=== PATIENT | female | born 1965 | race Caucasian/White ===

== ENCOUNTER 2019-06-27 13:53 | Emergency (ER) | payer SELFPAY ==
--- NOTE | 2019-06-27 15:45 | RAD REPORT ---
EXAM DESCRIPTION: RAD - Chest Pa And Lat (2 Views) - 06/27/2019 3:37 pm CLINICAL HISTORY: COUGH COMPARISON: No comparisons TECHNIQUE: Frontal and lateral views of the chest were obtained. FINDINGS: The lungs are clear. Heart size is normal and central vasculature is within normal limit s. No pleural effusion or pneumothorax seen. No acute bony finding noted. No aortic abnormality. IMPRESSION: No acute cardiopulmonary process.
[2019-06-27] MEDS ORDERED: predniSONE 20 MG TAB ONE (16:38)
[2019-06-27] MEDS ORDERED: CEFTRIAXONE 1000 MG/VIAL ONE (16:38)
[2019-06-27] MEDS ORDERED: AZITHROMYCIN 250 MG TAB ONE (16:38)
[2019-06-27] MEDS ORDERED: ALBUTEROL 2.5 MG/3 ML NEB SOL ONE (16:38)
[2019-06-27] MEDS ORDERED: IPRATROPIUM BROM 0.5MG/2.5ML ONE (16:38)
[2019-06-27] MEDS ORDERED: WATER FOR INJ,STERILE 10 ML ONE (16:39)
--- NOTE | 2019-06-27 17:05 | ER ---
Nurse's Notes [facility] Name: Brenda Velazquez Age: 54 yrs Sex: Female : 1965 Arrival Date: 06/27/2019 Time: 13:58 Bed 27 Private MD: Diagnosis: Cough;Acute upper respiratory infection, unspecified;Bronchitis, not specified as acute or chronic Presentation: 06/27 14:35 Presenting complaint: Patient states: Coughing and congestion x 1 month, intermittent jl7 fever x 1 week, went to urgent care and they sent her to ER due to "Crackles in posterior lungs.". Transition of care: patient was not received from another setting of care. Onset of symptoms was May 18, 2019. Risk Assessment: Do you want to hurt yourself or someone else? Patient reports no desire to harm self or others. Initial Sepsis Screen: Does the patient meet any 2 criteria? No. Patient's initial sepsis screen is negative. Does the patient have a suspected source of infection? No. Patient's initial sepsis screen is negative. Care prior to arrival: None. 14:35 Method Of Arrival: Ambulatory [facility] 14:35 Acuity: GAB 3 jl7 Triage Assessment: 14:37 General: Appears in no apparent distress. uncomfortable, Behavior is calm, cooperative, jl7 appropriate for age. Pain: Complains of pain in "Hurting when I cough.". 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 - Social history:: Smoking status: Patient/guardian denies using tobacco. - Ebola Screening: : No symptoms or risks identified at this time. - Family history:: not pertinent. Screenin:24 Abuse screen: Denies threats or abuse. Denies injuries from another. Nutritional mg2 screening: No deficits noted. Tuberculosis screening: No symptoms or risk factors identified. Fall Risk None identified. Assessment: 15:51 General: Appears in no apparent distress. comfortable, Behavior is calm, cooperative. mg2 16:22 Pain: Denies pain. Neuro: Level of Consciousness is awake, alert, obeys commands, mg2 Oriented to person, place, time, situation. Cardiovascular: Capillary refill < 3 seconds Patient's skin is warm and dry. Respiratory: Airway is patent Respiratory effort is even, unlabored, Respiratory pattern is regular, symmetrical, Breath sounds with crackles in left posterior upper lobe. GI: Reports lower abdominal pain. : No signs and/or symptoms were reported regarding the genitourinary system. EENT: No deficits noted. Derm: Skin is intact, is healthy with good turgor, Skin is pink, warm \\T\\ dry. normal. Musculoskeletal: Circulation, motion, and sensation intact. Capillary refill < 3 seconds. 16:52 Reassessment: Patient appears in no apparent distress at this time. Patient and/or mg2 family updated on plan of care and expected duration. Pain level reassessed. Patient is alert, oriented x 3, equal unlabored respirations, skin warm/dry/pink. Vital Signs: 14:37 BP 166 / 71; Pulse 70; Resp 16 S; Temp 97.8(O); Pulse Ox 100% on R/A; Pain 2/10; jl7 16:24 BP 122 / 63; Pulse 76; Resp 18; Pulse Ox 96% on R/A; mg2 ED Course: 13:58 Patient arrived in ED. mr 14:37 Triage completed. jl7 14:37 Arm band placed on right wrist. jl7 14:45 Tomi Navas MD is Attending Physician. emir 14:51 Judd Fitzpatrick, TORITO is Primary Nurse. mg2 15:37 XRAY Chest Pa And Lat (2 Views) In Process Unspecified. EDMS 16:24 Patient has correct armband on for positive identification. mg2 16:24 No provider procedures requiring assistance completed. Patient did not have IV access mg2 during this emergency room visit. Administered Medications: 16:51 Drug: Rocephin (cefTRIAXone) 1 grams Route: IM; Site: right gluteus; mg2 17:19 Follow up: Response: No adverse reaction; Medication administered at discharge. mg2 16:52 Drug: predniSONE 60 mg Route: PO; mg2 17:20 Follow up: Response: No adverse reaction; Medication administered at discharge. mg2 16:52 Drug: Albuterol - atroVENT (3:1) (2.5 mg - 0.5 mg) 3 ml Route: Nebulizer; mg2 17:20 Follow up: Response: No adverse reaction; Medication administered at discharge. mg2 16:52 Drug: Zithromax 500 mg Route: PO; mg2 17:20 Follow up: Response: No adverse reaction; Medication administered at discharge. mg2 Outcome: 17:04 Discharge ordered by . emir 17:20 Discharged to home ambulatory, with family. mg2 17:20 Condition: good 17:20 Discharge instructions given to patient, family, Instructed on discharge instructions, follow up and referral plans. medication usage, Demonstrated understanding of instructions, follow-up care, medications, Prescriptions given X 4. 17:21 Patient left the ED. mg2 Signatures: Dispatcher [employer] EDMS Tomi Navas MD MD cha Rivera, Mary mr Leal, Jahala, RN RN Judd Toney RN RN mg2 Corrections: (The following items were deleted from the chart) 16:24 15:51 General: Appears mg2 mg2
--- NOTE | 2019-06-27 17:06 | EDPHYS ---
Physician Documentation [facility] Name: Brenda Velazquez Age: 54 yrs Sex: Female : 1965 Arrival Date: 06/27/2019 Time: 13:58 Bed 27 Private MD: ED Physician Tomi Navas HPI: 06/27 16:30 This 54 yrs old Female presents to ER via Ambulatory with complaints of emir Cough, Fever, Congestion. 16:30 The patient or guardian reports airway noise, cough, difficulty breathing. Onset: The emir symptoms/episode began/occurred 2 day(s) ago. Severity of symptoms: At their worst the symptoms were mild, in the emergency department the symptoms are unchanged, are actually worse. Modifying factors: The symptoms are alleviated by nothing, the symptoms are aggravated by cold weather, exertion, talking. Associated signs and symptoms: Pertinent positives: rhinorrhea, sore throat. The patient has experienced similar episodes in the past, a few times. 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 - Social history:: Smoking status: Patient/guardian denies using tobacco. - Ebola Screening: : No symptoms or risks identified at this time. - Family history:: not pertinent. ROS: 16:30 Constitutional: Negative for fever, chills, and weight loss, Eyes: Negative for injury, emir pain, redness, and discharge, ENT: Negative for injury, pain, and discharge, Neck: Negative for injury, pain, and swelling, Cardiovascular: Negative for chest pain, palpitations, and edema, Abdomen/GI: Negative for abdominal pain, nausea, vomiting, diarrhea, and constipation, Back: Negative for injury and pain, : Negative for injury, bleeding, discharge, and swelling, MS/Extremity: Negative for injury and deformity, Skin: Negative for injury, rash, and discoloration, Neuro: Negative for headache, weakness, numbness, tingling, and seizure, Psych: Negative for depression, anxiety, suicide ideation, homicidal ideation, and hallucinations, Allergy/Immunology: Negative for hives, rash, and allergies, Endocrine: Negative for neck swelling, polydipsia, polyuria, polyphagia, and marked weight changes, Hematologic/Lymphatic: Negative for swollen nodes, abnormal bleeding, and unusual bruising. 16:30 Respiratory: Positive for cough, shortness of breath, on exertion. wheezing, expiratory. Exam: 16:30 Constitutional: This is a well developed, well nourished patient who is awake, alert, emir and in no acute distress. Head/Face: Normocephalic, atraumatic. Eyes: Pupils equal round and reactive to light, extra-ocular motions intact. Lids and lashes normal. Conjunctiva and sclera are non-icteric and not injected. Cornea within normal limits. Periorbital areas with no swelling, redness, or edema. ENT: Nares patent. No nasal discharge, no septal abnormalities noted. Tympanic membranes are normal and external auditory canals are clear. Oropharynx with no redness, swelling, or masses, exudates, or evidence of obstruction, uvula midline. Mucous membranes moist. Neck: Trachea midline, no thyromegaly or masses palpated, and no cervical lymphadenopathy. Supple, full range of motion without nuchal rigidity, or vertebral point tenderness. No Meningismus. Chest/axilla: Normal chest wall appearance and motion. Nontender with no deformity. No lesions are appreciated. Cardiovascular: Regular rate and rhythm with a normal S1 and S2. No gallops, murmurs, or rubs. Normal PMI, no JVD. No pulse deficits. Abdomen/GI: Soft, non-tender, with normal bowel sounds. No distension or tympany. No guarding or rebound. No evidence of tenderness throughout. Back: No spinal tenderness. No costovertebral tenderness. Full range of motion. Skin: Warm, dry with normal turgor. Normal color with no rashes, no lesions, and no evidence of cellulitis. MS/ Extremity: Pulses equal, no cyanosis. Neurovascular intact. Full, normal range of motion. Neuro: Awake and alert, GCS 15, oriented to person, place, time, and situation. Cranial nerves II-XII grossly intact. Motor strength 5/5 in all extremities. Sensory grossly intact. Cerebellar exam normal. Normal gait. 16:30 Respiratory: the patient does not display signs of respiratory distress, Respirations: normal, no acute changes, Breath sounds: bronchial sounds, decreased breath sounds, rhonchi, that are mild, wheezing: expiratory 16:35 Musculoskeletal/extremity: DVT Exam: No signs of deep vein thrombosis. no pain, no emir swelling, no tenderness, negative Homans' sign noted on exam, no appreciated bluish discoloration, no erythema, no increased warmth. Vital Signs: 14:37 BP 166 / 71; Pulse 70; Resp 16 S; Temp 97.8(O); Pulse Ox 100% on R/A; Pain 2/10; jl7 16:24 BP 122 / 63; Pulse 76; Resp 18; Pulse Ox 96% on R/A; mg2 MDM: 14:45 Patient medically screened. [facility] [place] 16:34 Data reviewed: vital signs, nurses notes, lab test result(s), radiologic studies, plain emir films. 06/27 15:12 Order name: Flu; Complete Time: 16:11 mg2 06/27 15:12 Order name: XRAY Chest Pa And Lat (2 Views); Complete Time: 16:11 mg2 Administered Medications: 16:51 Drug: Rocephin (cefTRIAXone) 1 grams Route: IM; Site: right gluteus; mg2 17:19 Follow up: Response: No adverse reaction; Medication administered at discharge. mg2 16:52 Drug: predniSONE 60 mg Route: PO; mg2 17:20 Follow up: Response: No adverse reaction; Medication administered at discharge. mg2 16:52 Drug: Albuterol - atroVENT (3:1) (2.5 mg - 0.5 mg) 3 ml Route: Nebulizer; mg2 17:20 Follow up: Response: No adverse reaction; Medication administered at discharge. mg2 16:52 Drug: Zithromax 500 mg Route: PO; mg2 17:20 Follow up: Response: No adverse reaction; Medication administered at discharge. mg2 Disposition: 06/27/19 17:04 Discharged to Home. Impression: Cough, Acute upper respiratory infection, unspecified, Bronchitis, not specified as acute or chronic. - Condition is Stable. - Discharge Instructions: Acute Bronchitis, Adult, Upper Respiratory Infection, Adult, Cool Mist Vaporizer, Acute Bronchitis, [id number], Upper Respiratory Infection, Adult, [id number], Cough, Adult, [id number], Cough, Adult, How to Use an Inhaler, [id number]. - Prescriptions for Albuterol Sulfate 2.5 mg /3 mL (0.083 %) Inhalation Solution for Nebulization - inhale 1 unit by NEBULIZATION route every 8 hours As needed; 1 box. Prednisone 20 mg Oral Tablet - take 2 tablet by ORAL route once daily for 5 days; 10 tablet. Albuterol Sulfate 90 mcg/actuation - inhale 1-2 puff by INHALATION route every 4-6 hours; 1 Inhaler. Zithromax 500 mg Oral Tablet - take 1 tablet by ORAL route once daily for 5 days; 5 tablet. - Medication Reconciliation Form, Thank You Letter, Antibiotic Education, Prescription Opioid Use, Work release form form. - Follow up: Private Physician; When: 2 - 3 days; Reason: Recheck today's complaints, Continuance of care, Re-evaluation by your physician. - Problem is new. - Symptoms have improved. Signatures: Dispatcher [employer] EDMS Tomi Navas MD MD cha Leal, Jahala, RN RN jl7 Judd Fitzpatrick RN RN mg2 Corrections: (The following items were deleted from the chart) 17:21 17:04 06/27/2019 17:04 Discharged to Home. Impression: Cough; Acute upper respiratory mg2 infection, unspecified; Bronchitis, not specified as acute or chronic. Condition is Stable. Discharge Instructions: Acute Bronchitis, Adult, Upper Respiratory Infection, Adult, Cool Mist Vaporizer, Acute Bronchitis, [id number], Upper Respiratory Infection, Adult, [id number], Cough, Adult, [id number], Cough, Adult, How to Use an Inhaler, [id number]. Prescriptions for Albuterol Sulfate 2.5 mg /3 mL (0.083 %) Inhalation Solution for Nebulization - inhale 1 unit by NEBULIZATION route every 8 hours As needed; 1 box, Prednisone 20 mg Oral Tablet - take 2 tablet by ORAL route once daily for 5 days; 10 tablet, Albuterol Sulfate 90 mcg/actuation - inhale 1-2 puff by INHALATION route every 4-6 hours; 1 Inhaler, Zithromax 500 mg Oral Tablet - take 1 tablet by ORAL route once daily for 5 days; 5 tablet. and Forms are Medication Reconciliation Form, Thank You Letter, Antibiotic Education, Prescription Opioid Use. Follow up: Private Physician; When: 2 - 3 days; Reason: Recheck today's complaints, Continuance of care, Re-evaluation by your physician. Problem is new. Symptoms have improved. emir
[2019-06-27 19:57] VITALS: TEMP 97.8
[2019-06-27 20:06] VITALS: BP 122/63; O2SAT 96
== END 2019-06-27 17:21 | disposition home or self-care (01) ==
LOC: ER 13:53
DX: J06.9 Acute upper respiratory infection, unspecified (principal); J40 Bronchitis, not specified as acute or chronic
CPT/HCPCS: 71046; 87804; 94640; 96372; 99284; J7512